=== PATIENT | male | born 1970 | race Caucasian/White ===

== ENCOUNTER 2017-12-26 10:59 | Day surgery (SDC) | payer BC ==
[~2017-12-26] VITALS: Ht 188 cm; Wt 115.9 kg
[~2017-12-26 10:59] MED LIST: HYDACE5 PO
== END 2017-12-26 14:46 | disposition home or self-care (01) ==
LOC: ORSCSDS 10:59
DX: M75.41 Impingement syndrome of right shoulder (principal); M65.811 Other synovitis and tenosynovitis, right shoulder; M75.21 Bicipital tendinitis, right shoulder; M75.111 Incomplete rotator cuff tear or rupture of right shoulder, not specified as traumatic
CPT/HCPCS: C1713; J0171; J0330; J0690; J2250; J3010; J7120

== ENCOUNTER 2022-09-27 09:14 | Day surgery (SDC) | payer BC ==
[~2022-09-27] VITALS: Ht 188 cm; Wt 123.0 kg
--- NOTE | 2022-09-27 09:57 | NUR ---
[facility] in [facility] warming gown applied. Patient states colon prep results clear. History, Chart, Medications and Allergies reviewed before start of procedure.Lungs clear T/O to Auscultation. Patient confirms NPO status and agrees with scheduled surgery. Pre-Op teaching done. Pt verbalizes understanding. Patient States Post-Procedure ride home has been arranged.
--- NOTE | 2022-09-27 10:07 | NUR ---
09/27/22 Blaire Roberts HISTORY, CHART, MEDICATIONS AND ALLERGIES REVIEWED BEFORE START OF PROCEDURE. PATIENT CONFIRMS NPO STATUS AND AGREES WITH SCHEDULED PROCEDURE. 3-LEAD EKG REVIEWED WITH PHYSICIAN PRIOR TO START OF PROCEDURE. MONITOR INTACT WITH CONTINUOUS PULSE OXIMETRY,CAPNOGRAPHY, 3-LEAD EKG, INTERMITTENT BP. SUPPLEMENTAL O2 TO BE TITRATED THROUGHOUT PROCEDURE TO MAINTAIN O2 SATURATION ABOVE 90%. PATIENT DETERMINED TO BE ASA APPROPRIATE FOR PROPOFOL SEDATION PRIOR TO START OF PROCEDURE BY DR. BENITES
--- NOTE | 2022-09-27 10:45 | NUR ---
Patient up to Ambulate independently. Gait steady. Discharge instructions reviewed with patient. Patient verbalizes understanding. Copy given to patient to take home. Discharged via wheelchair to private car for ride home WITH . VSS.
== END 2022-09-27 10:35 | disposition home or self-care (01) ==
LOC: ORSCMMR 09:14 → ORD 10:30 → ORSCMMR 10:30
PROVIDERS: Internal Medicine Gastroenterology
PROC: 0DJD8ZZ Inspection of Lower Intestinal Tract, Via Natural or Artificial Opening Endoscopic (ICD-10-PCS; principal; 2022-09-27 10:30)
DX: Z12.11 Encounter for screening for malignant neoplasm of colon (principal)
CPT/HCPCS: J2704; J7120